=== PATIENT | male | born 1960 ===

== ENCOUNTER 2021-01-24 10:14 | Outpatient (REF) | payer SELFPAY ==
[2021-01-24 14:27] LABS: Anion Gap 5.3 mmol/L (3-11); BUN 18 mg/dL (7-18); CO2 32.7 mmol/L (21.0-32.0); Calcium 8.7 mg/dL (8.5-10.1); Chloride 102 mmol/L (98-107); Glucose 106 mg/dL (74-106); Potassium 4.1 mmol/L (3.5-5.1); Sodium 140 mmol/L (136-145); Uric Acid 6.4 mg/dL (3.5-7.2)
== END 2021-01-24 10:15 | disposition home or self-care (01) ==
LOC: LBN 10:14
PROVIDERS: PCP General Practice; Visit Provider Nurse Practitioner Family
DX: I10 Essential (primary) hypertension (principal); Z86.39 Personal history of other endocrine, nutritional and metabolic disease
CPT/HCPCS: 80048; 84550

== ENCOUNTER 2021-04-27 19:41 | Emergency (ER) | payer SELFPAY ==
[2021-04-27] VITALS (16 sets, daily range): BP systolic 156–211; BP diastolic 71–97; PULSE 72–106; RESP 12–20; TEMP 36.2–36.8; O2SAT 95–99
--- NOTE | 2021-04-27 19:30 | RT.EKG_ITS ---
APPROVED REPORT Exam: Resting ECG Reason for Exam: dizzy Patient Location: E HR:92 bpm ECG Measurements Heart Rate 92 AXIS HI 224 P 0 QRSd 114 QRS -11 QT 386 T 64 QTc 478 Conclusion Sinus rhythm...normal P axis, V-rate 60- 99 Prolonged HI interval...HI >205, V-rate 91-120. Sinus. No STEMI. I have reviewed and interpreted ECG and agree with software generated interpretation.
--- NOTE | 2021-04-27 19:56 | ED.GENADUL_ITS ---
Discharge Plan Disposition Patient Disposition: HOME Condition: Fair Discharge Details Clinical Impression: Elevated blood pressure reading, Dizziness, BARBARA (obstructive sleep apnea), Acute kidney injury, Dehydration Primary Care Provider: Tyson Mcfarland ED Provider: Tamela Ocampo Discharge Instructions Instructions: How to Stop Smoking (ED), Dehydration (ED) Additional Instructions: Your labs are concerning today for elevated kidney function tests. I am concerned that this is a lack of water in your diet daily. Please begin to increase your water consumption. This will also help with general health including help with weight loss. Your blood pressure was elevated here. Please continue with the medication that you have been previously prescribed. I would like for you to have this reevaluated within the next week and discuss further with local primary care. For your physical and mental health, please begin short walks on a daily basis with significant other. Please consider smoking cessation. Attached is information on how to be success ful in doing so. I have asked her care management to reach out to you to help establish local primary care with follow-up appointment on place. When he sees his primary care, I would like for you to discuss your obstructive sleep apnea and that you do not have a CPAP here. This is likely what contributed to the events that led to come in this evening. Pain management lost to help direct to in regards to medical insurance. If you develop chest pain, shortness of breath, difficulty breathing, syncopal episode or other new/worsening symptoms please seek care urgently once again. Discharge Data Discharge Date/Time-TO BE ENTERED AT DEPARTURE: 04/27/21 23:58 Medical Decision Making Patient is a pleasant 60-year-old male, accompanied by significant other, with chief complaint of ringing in both ears and hands tingling. He states that this evening he had dinner and a few cocktails. He states that typically after dinner he will fall asleep. Patient reports he has a known history of obstructive sleep apnea. Has been living in the area for approximately 1 year. States that he did not bring his CPAP from [place] where he moved from when he came. His significant other witnessed the event tonight and states that he was very well when sleeping and was making very unusual noises or was very quiet. Patient states that he gel for the way and that is when he experienced the symptoms. He denies any headache. No visual change. No focal deficits. No unilateral symptoms. Denies any chest pain or shortness of breath. Denies any GI upset. PMH sigfnicant for BARBARA, hypertension. On exam, patient appears nontoxic. He does appear anxious. He was initially hypertensive with a blood pressure of 211/97. Blood pressures down to 174 systolic. Symptoms are resolved with the time of my exam. His lungs are clear, normal cardiac exam. No calf tenderness. No significant swelling in bilateral lower extremities. Neurologic exam is intact. No evidence of posterior stroke or unilateral findings. EKG was obtained. Reviewed by Dr. Martin. No acute ischemic changes noted. Primarily concerned at this time for patient having significant obstructive sleep apnea. Considered ACS. 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 His history and exam is not suggestive of CVA. Symptoms have been bilateral, resolved. Labs reviewed. No leukocytosis. Stable H&H. Potassium slightly low at 3.3, will replenish this orally. His BUN is elevated at 24 with a creatinine of 1.7. Creatinine was last checked here in January at which time it was 1.0. Troponin within normal limits. Given the time of onset, plan to obtain delta troponin. FINDINGS: Lungs: Lungs are clear without consolidation. Pulmonary marie: Unremarkable contours. Pleural spaces: No pleural effusion. No pneumothorax. Heart/Mediastinum: Unremarkable contours. No cardiomegaly. Bones/joints: Unremarkable. Intraperitoneal space: Visualized upper abdomen is unremarkable. IMPRESSION: No acute findings. Repeat troponin remains within normal limits. I discussed findings at length with the patient. He has multitude's concerning risk factor which we discussed at length. Patient currently does not have health insurance. I will have our care management team to reach out to him regarding the. Patient does not have a local primary care and I would like for him to have prompt follow-up. I would like for him to be reevaluated for his presenting symptoms today as well as his uncontrolled hypertension, uncontrolled obstructive sleep apnea, acute kidney injury. I did encourage lifestyle modification including weight loss, water intake, smoking cessation. Patient did recently lose his mother and has been having some difficulty with depression. No suicidal ideation. I did encourage some gentle exercise significant other. I advised that he discuss this further and consider counseling. Patient reports that his mailbox was not set up on his cell phone. However, advised that care management can attempt to call him tomorrow. If this is unsuccessful, he gave permission to contact his significant other, Adriana at [phone]. If she does not answer permission was given to leave message. Strict return precautions were discussed. We did discuss positioning for sleep to hopefully reduce his obstructive sleep apnea symptoms. All his questions and concerns were addressed and she is in agreement with this plan. Patient continues to be hypertensive but is feeling significantly improved with no recurrence of the symptoms. The patient had not been taking his antihypertensives for quite some time, this is likely his baseline. Has not been seen here for comparison blood pressure in the past, I will hold off on any further treatment and will defer to close follow-up with primary care. Strict return precautions discussed. Patient has more of his antihypertensive at home, will take this from now on. All of his quesitons and concerns were addressed, he is in agreement with this plan. HPI General Mode of arrival: ambulatory . Date/Time Provider Initiated Documentation: 04/27/21 19:41 . Limitations to Documentation: no limitations . Information obtained by: patient, family (significant other) and RN notes reviewed . History of Present Illness 60 year old M presents to the emergency department with the chief complaint of ringing in bilateral ears, tingling in bilateral hands, described as mild (denies any pain), and is localized to the head, left, right and upper extremity. Patient reports no radiation. Patient started experiencing this minute(s) and it has been now resolved. No relieving factors improve symptom(s), Other factors that worsen symptoms (came on after witnessed BARBARA event when napping) . Patient notes denies chest pain, cough, diaphoresis, fever/chills, nausea/vomiting, shortness of breath and weakness. Patient did receive the following treatments prior to arrival, none Related Data Allergies Allergy/AdvReac Type Severity Reaction Status Date / Time Penicillins Allergy Unknown Unverified 04/27/21 19:50 General Stated Complaint: Dizzy/Sync LILI: 3 Review of Systems Constitutional Constitutional: Reports as per HPI, Denies chills, Denies fever(s), Denies frequent falls, Denies headache(s), Reports snoring and Denies weakness Eyes Eyes: Reports as per HPI, Denies blurry vision and Denies change in vision ENT Ears, Nose, Mouth, and Throat: Denies vertigo, Denies headache(s) and Denies neck pain Cardiovascular Cardiovascular: Reports as per HPI, Denies chest pain, Reports lightheadedness, Denies radiating jaw, neck or arm pain, Denies dyspnea and Denies dyspnea on exertion Respiratory Respiratory: Reports as per HPI, Denies chest congestion, Denies cough, Denies dyspnea, Denies dyspnea on exertion and Reports snoring Gastrointestinal Gastrointestinal: Reports as per HPI, Denies abdominal pain, Denies change in bowel habits, Denies nausea and Denies vomiting Genitourinary Genitourinary: Reports system reviewed and no additional complaints, except as documented (denies change in urinary habits) Musculoskeletal Musculoskeletal: Reports as per HPI, Denies back pain, Denies muscle cramps, Denies neck pain and Reports tingling Integumentary/Breasts Skin/Breast: Reports as per HPI and Denies rash Neurologic Neurologic: Reports as per HPI, Denies abnormal movements, Denies abnormal speech, Denies behavioral changes, Denies confusion, Denies vertigo, Denies frequent falls, Denies headache(s), Denies localized weakness, Denies sensory deficit, Reports tingling and Denies weakness Psychiatric Psychiatric: Denies behavioral changes and Denies confusion FOR[facility]LY [facility], [facility] Active Problem List (Updated 04/27/21 @ 23:51 by FAVIAN Tucker) Elevated blood pressure reading (Acute) Dizziness (Acute) BARBARA (obstructive sleep apnea) (Chronic) Acute kidney injury (Acute) Dehydration (Acute) Social History Smoking/Tobacco Use Status: Current, status unknown Tobacco Type: cigarettes Tobacco: How many years used: 12 Smoking risk assessment performed?: Yes Alcohol Intake: current Alcohol Intake frequency: 0-2 drinks per day Alcohol type: hard liquor Drug use: Never Substance use type: does not use Do you feel safe at home: Yes Do you feel safe in your relationship?: Yes Exam Const General: cooperative, healthy appearing, comfortable, no acute distress, well developed, well groomed and anxious Nutritional Appearance: well nourished and overweight Orientation: alert, awake and oriented x3 HENMT Head: normal to inspection, no palpable skull fracture, normocephalic and atraumatic Ears: hearing grossly normal bilaterally, external ears normal and TM's normal bilaterally General nose exam: external nose normal Mouth: oral mucosae normal and moist mucous membranes Throat: posterior oropharynx normal Eyes General: appearance normal, both eyes and all related structures Alignment and Position: alignment normal Periorbital: periorbital findings normal Eyelids: eyelids normal Sclera: sclerae normal Cornea: corneas normal Pupils: PERRL EOM: EOM intact bilaterally Neck Neck: normal visual inspection, full ROM, no lymphadenopathy and no meningeal signs Resp Effort & Inspection: normal respiratory effort, able to speak in complete sentences and no respiratory distress Auscultation: clear to auscultation bilaterally, no rales, no rhonchi and no wheezes Cardio Rate: regular rate Rhythm: regular rhythm Heart Sounds: S1 normal and S2 normal Back/Spine/Pelvis Cervical Spine: normal cervical lordosis and cervical ROM normal Skin General skin exam: no rashes or lesions noted Neuro General: patient alert, patient awake and patient oriented x3 Cranial Nerves: CN's II-XI intact bilaterally Cognition: normal cognition Speech: speech normal Gait: normal gait Motor: muscle tone normal throughout, strength 5/5 throughout, no pronator drift, no movement abnormalities noted and no fasciculations Sensory Exam: no sensory deficits noted DTR's: Rt Biceps: 2+, Lt Biceps: 2+, Rt Brachioradialis: 2+, Lt Brachioradialis: 2+, Rt Patellar: 2+ and Lt Patellar: 2+ Coordination: [id number]-[id number] test normal, [id number]-[id number] test normal, Romberg test normal, tandem gait normal, Does not sway with eyes open and rapid alternating movement UE normal Extrem General: normal to inspection, capillary refill normal, no pedal edema and no calf tenderness Psych Appearance: grossly normal and well kempt Mental Status: mental status grossly normal Speech and Movement: speech and movement normal Course Vital Signs Vital signs: Vital Signs Temperature 36.2 C L 04/27/21 19:47 Pulse 95 H 04/27/21 19:47 Respiratory Rate 20 04/27/21 19:47 Blood Pressure 211/97 H 04/27/21 19:47 Pulse Oximetry 99 04/27/21 19:47 Temperature 36.2 C L 04/27/21 19:47 Temperature Source Temporal Artery Scan 04/27/21 19:47 Pulse 95 H 04/27/21 19:47 Respiratory Rate 20 04/27/21 19:47 Blood Pressure 211/97 H 04/27/21 19:47 Blood Pressure Position Sitting 04/27/21 19:47 Pulse Oximetry 99 04/27/21 19:47 Oxygen Delivery Method Room Air 04/27/21 19:47 Oxygen Flow Rate 0 04/27/21 19:47 Pain Level 0 04/27/21 19:47
--- NOTE | 2021-04-27 20:12 | NUR.NOTE ---
Nursing Note: Patient cannot recall medication but reports he takes blood pressure medication. Provider aware.
[2021-04-27 20:17] LABS: Abs Immature Grans 0.02 10^3/uL (0.0-0.06); Absolute Basophil Count 0.05 10^3/uL (0.0-0.2); Absolute Eosinophil Count 0.19 10^3/uL (0.0-0.7); Absolute Lymphocyte Count 2.93 10^3/uL (1.2-3.4); Absolute Monocyte Count 0.52 10^3/uL (0.1-0.8); Absolute Neutrophil Count 4.66 10^3/uL (1.2-6.7); Basophils % 0.6; Eosinophils % 2.3; HCT 44.3 % (40.0-50.0); HGB 14.8 g/dL (13.5-17.5); Immature Grans % 0.2; MCH 30.6 pg (27.0-33.0); MCHC 33.4 % (32.0-36.0); MCV 91.7 fL (80-95); MPV 10.1 fL (8.0-11.0); Monocytes % 6.2; Neutrophils % 55.7; Nucleated RBC 0 %; Platelet Count 227 10^3/uL (130-400); RBC 4.83 10^6/uL (4.36-5.78); WBC 8.37 10^3/uL (4.4-10.8)
[2021-04-27 20:32] LABS: ALT 48 U/L (16-63); AST 24 U/L (15-37); Albumin 4.4 g/dL (3.4-5.0); Alkaline Phosphatase 99 U/L (46-116); Anion Gap 10.2 mmol/L (3-11); BUN 24 mg/dL (7-18); Bilirubin, Total 0.6 mg/dL (0.2-1.0); CO2 32.8 mmol/L (21.0-32.0); CREATININE 1.7 mg/dL (0.70-1.30); Chloride 98 mmol/L (98-107); Glucose 100 mg/dL (74-106); Magnesium 1.8 mg/dL (1.8-2.4); Potassium 3.3 mmol/L (3.5-5.1); Sodium 141 mmol/L (136-145); Total Protein 8.4 g/dL (6.4-8.2)
--- NOTE | 2021-04-27 20:45 | DI.RAD_ITS ---
Exam(s) XR CHEST 2V PA LATERAL EXAM: XR CHEST 2V PA LATERAL CLINICAL HISTORY: dizziness. TECHNIQUE: 2D digital imaging was performed. COMPARISON: No exams were available for comparison FINDINGS: Heart size is normal. The mediastinum is not widened. Lungs are clear. No infiltrates nor pleural effusions. IMPRESSION: No acute pulmonary findings. DATA REPOSITORY: RADIATION DOSE DELIVERED:
[2021-04-27 20:50] LABS: Troponin I < 0.05 ng/mL (<0.06)
--- NOTE | 2021-04-27 21:51 | DI.VRAD_ITS ---
PROCEDURE INFORMATION: Exam: XR Chest Exam date and time: 04/27/2021 9:28 PM Age: 60 years old Clinical indication: Other: Dizziness TECHNIQUE: Imaging protocol: XR of the chest. Views: 2 views. Total images: 2 COMPARISON: No relevant prior studies available. FINDINGS: Lungs: Lungs are clear without consolidation. Pulmonary marie: Unremarkable contours. Pleural spaces: No pleural effusion. No pneumothorax. Heart/Mediastinum: Unremarkable contours. No cardiomegaly. Bones/joints: Unremarkable. Intraperitoneal space: Visualized upper abdomen is unremarkable. IMPRESSION: No acute findings. Dictated and Authenticated by: Moises Hu MD. Ordering:ALINA Rapp MD
[2021-04-27 23:20] LABS: Troponin I < 0.05 ng/mL (<0.06)
--- NOTE | 2021-04-27 23:41 | NUR.NOTE ---
i put the referral for a pcp and to be set up on cpap jerardo in the care management mailbox Nursing Note:
== END 2021-04-27 23:58 | disposition home or self-care (01) ==
PROVIDERS: Emergency Provider Physician Assistant; PCP General Practice
DX: R03.0 Elevated blood-pressure reading, without diagnosis of hypertension (principal); R42 Dizziness and giddiness; N17.9 Acute kidney failure, unspecified; E86.0 Dehydration; G47.33 Obstructive sleep apnea (adult) (pediatric)
CPT/HCPCS: 80053; 93005; 99284; 71046; 83735; 84484; 85025; 93010; 99283

== ENCOUNTER 2022-09-18 08:45 | Outpatient (CLI) | payer OTHER, SELFPAY ==
[2022-09-18 09:43] LABS: Anion Gap 9.3 mmol/L (3-11); BUN 17 mg/dL (7-18); CO2 27.7 mmol/L (21.0-32.0); Calcium 8.6 mg/dL (8.5-10.1); Chloride 103 mmol/L (98-107); Estimated GFR 86.16 (mL/min/1.73m2); Glucose 98 mg/dL (74-106); Potassium 3.9 mmol/L (3.5-5.1); Sodium 140 mmol/L (136-145)
[2022-09-18 12:29] LABS: Lab Add On Test Done
[2022-09-18 13:02] LABS: Calculated LDL 100 mg/dL (<100); Cholesterol 177 mg/dL (<200); HDL Cholesterol 60 mg/dL (40-60); Triglyceride 87 mg/dL (<150)
[2022-09-21 01:32] LABS: PSA, Screening 0.7 ng/mL (<=4.5)
== END 2022-09-18 08:46 | disposition home or self-care (01) ==
LOC: LBO 08:47
PROVIDERS: PCP Nurse Practitioner Adult Health; Visit Provider Nurse Practitioner Adult Health
DX: I10 Essential (primary) hypertension (principal); Z13.220 Encounter for screening for lipoid disorders; Z12.5 Encounter for screening for malignant neoplasm of prostate
CPT/HCPCS: 36415; 80048; 80061; 84153